=== PATIENT | female | born 1940 | race Caucasian/White ===

== ENCOUNTER 2016-05-21 06:16 | Observation (INO) | payer MEDICARE, SELFPAY ==
[~2016-05-21] VITALS: Ht 165.1 cm; Wt 85.3 kg
[~2016-05-21 06:16] MED LIST: ALPRAZOLAM0.5 MG PO; ARICEPT5 MG PO; CATAPRES 0.1MG0.1 MG PO; CLONIDINE HCL0.3 MG PO; CODIENE PO; FLEXERIL 10 MG10 MG PO; FLUCONAZOLE150 MG PO; HYDRALAZINE HCL50 MG PO; HYDROCHLOROTHIA25 MG PO; LEVOTHYROXINE75 MCG PO; METOPROLOL TART25 MG PO; MONTELUKAST SOD10 MG PO; NAMENDA10 MG PO; NORVASC 5 MG TAB5 MG PO; PLAVIX 75 MG TA75 MG PO; PROMETHAZINE PO; PROZAC 20 MG CA20 MG PO; TRAMADOL HCL50 MG PO; ZOFRAN ODT 4 MG4 MG PO
[2016-05-21 07:48] LABS: HEMOGLOBIN 11.8 gm/dl (12.3-15.3); RED BLOOD COUNT 4.17 M/UL (4.00-5.10); WHITE BLOOD COUNT 13.7 K/UL (4.5-11.0)
[2016-05-21] MEDS ORDERED: PROTONIX 40 MG40 M1 PO (11:34)
[2016-05-21] MEDS ORDERED: ZYRTEC10 M3 PO (11:34)
[2016-05-21] MEDS ORDERED: HYDROCHLOROTHIA25 MG PO (11:35)
[2016-05-22 04:44] LABS: HEMOGLOBIN 11.2 gm/dl (12.3-15.3); WHITE BLOOD COUNT 14.1 K/UL (4.5-11.0)
[2016-05-23] MEDS ORDERED: ASPIRIN 325MG325 MG PO (12:42)
[2016-05-23] MEDS ORDERED: ELIQUIS 2.5 MG2.5 MG PO (12:42)
[2016-05-23] MEDS ORDERED: CATAPRES 0.1MG0.1 MG PO (12:44)
[2016-05-23] MEDS ORDERED: VIBRAMYCIN 100100 MG PO (12:50)
[2016-05-23] MEDS ORDERED: DIFLUCAN150 MG PO (13:10)
== END 2016-05-23 13:50 | disposition home or self-care (01) ==
LOC: ER1 06:16 → MED SURG 4 09:30 → ER1 09:30 → ZEROF 09:30 → MED SURG 4 12:09 → ZEROF 12:09 → MED SURG 4 12:09 → ZEROF 05-22 14:00 → ER1 05-22 14:00 → MED SURG 4 05-22 14:00
PROVIDERS: Emergency Medicine; ADMIT Family Medicine
DX: R07.9 Chest pain, unspecified (principal); J90 Pleural effusion, not elsewhere classified; J44.9 Chronic obstructive pulmonary disease, unspecified; I12.9 Hypertensive chronic kidney disease with stage 1 through stage 4 chronic kidney disease, or unspecified chronic kidney disease; N18.3 Chronic kidney disease, stage 3 (moderate); E87.1 Hypo-osmolality and hyponatremia; I48.91 Unspecified atrial fibrillation; E87.6 Hypokalemia; E89.0 Postprocedural hypothyroidism; G89.29 Other chronic pain; M54.5 Low back pain; Z86.73 Personal history of transient ischemic attack (TIA), and cerebral infarction without residual deficits; Z88.1 Allergy status to other antibiotic agents; Z88.7 Allergy status to serum and vaccine; Z79.899 Other long term (current) drug therapy; Z96.659 Presence of unspecified artificial knee joint; Z98.890 Other specified postprocedural states
CPT/HCPCS: 36415; 71010; 71020; 80048; 80053; 80061; 81001; 82550; 82553; 83874; 84132; 84443; 84484; 85025; 85027; 87086; 93005; 99285; G0378; J7030

== ENCOUNTER 2016-06-25 13:27 | Inpatient (IN) | payer MEDICARE, SELFPAY ==
[~2016-06-25] VITALS: Ht 165.1 cm; Wt 85.3 kg
[~2016-06-25 13:27] MED LIST changes: +ASPIRIN 325MG325 MG PO; +DIFLUCAN150 MG PO; +ELIQUIS 2.5 MG2.5 MG PO; +PROTONIX 40 MG40 M1 PO; +VIBRAMYCIN 100100 MG PO; +ZYRTEC10 M3 PO
[2016-06-25 15:28] LABS: HEMOGLOBIN 11.3 gm/dl (12.3-15.3); RED BLOOD COUNT 4.15 M/UL (4.00-5.10); WHITE BLOOD COUNT 20.6 K/UL (4.5-11.0)
[2016-06-25] MEDS ORDERED: BRINTELLIX10 MG PO (20:22)
[2016-06-26] MEDS ORDERED: ECOTRIN81 MG PO (00:01)
[2016-06-26] MEDS ORDERED: ELIQUIS 5 MG TAB5 MG PO (00:02)
[2016-06-26 04:01] LABS: HEMOGLOBIN 10.2 gm/dl (12.3-15.3); RED BLOOD COUNT 3.74 M/UL (4.00-5.10); WHITE BLOOD COUNT 17.1 K/UL (4.5-11.0)
[2016-06-29] MEDS ORDERED: CARDIZEM120 MG PO (11:45)
[2016-06-29] MEDS ORDERED: ZOFRAN 4 MG TAB4 MG PO (11:46)
[2016-06-29] MEDS ORDERED: SOTALOL80 MG PO (11:46)
[2016-06-29] MEDS ORDERED: COLCHICINE0.6 MG PO (13:13)
[2016-06-29] MEDS ORDERED: HYDROCHLOROTHIA25 MG PO (14:41)
== END 2016-06-29 15:49 | disposition home or self-care (01) | DRG 315 ==
LOC: ER1 13:27 → PROG CARE 17:30 → ZEROF 17:30 → PROG CARE 19:58
PROVIDERS: Emergency Medicine; ADMIT Internal Medicine
DX: I30.9 Acute pericarditis, unspecified (principal); N17.9 Acute kidney failure, unspecified; N18.3 Chronic kidney disease, stage 3 (moderate); E03.9 Hypothyroidism, unspecified; I12.9 Hypertensive chronic kidney disease with stage 1 through stage 4 chronic kidney disease, or unspecified chronic kidney disease; K21.9 Gastro-esophageal reflux disease without esophagitis; I48.0 Paroxysmal atrial fibrillation; Z79.01 Long term (current) use of anticoagulants; Z79.899 Other long term (current) drug therapy; I07.1 Rheumatic tricuspid insufficiency; F03.90 Unspecified dementia, unspecified severity, without behavioral disturbance, psychotic disturbance, mood disturbance, and anxiety; R11.0 Nausea; Z88.7 Allergy status to serum and vaccine; M21.371 Foot drop, right foot; H91.90 Unspecified hearing loss, unspecified ear
CPT/HCPCS: ECHO; 36415; 71010; 80048; 80053; 82550; 82553; 83735; 83874; 83880; 84100; 84439; 84443; 84484; 85025; 85610; 93005; 93270; 93306; 94664; 96374; 96375; 99291; J2270; J2405; J7030

== ENCOUNTER → 2016-07-01 | Outpatient (CLI) | payer MEDICARE, SELFPAY ==
[~2016-07-01] MED LIST changes: +BRINTELLIX10 MG PO; +CARDIZEM120 MG PO; +COLCHICINE0.6 MG PO; +ECOTRIN81 MG PO; +ELIQUIS 5 MG TAB5 MG PO; +SOTALOL80 MG PO; +ZOFRAN 4 MG TAB4 MG PO
== END ==
LOC: NM 08:30
DX: R07.9 Chest pain, unspecified (principal)
CPT/HCPCS: 78452; 93017; A9502; J2785